=== PATIENT | female | born 1970 | race Caucasian/White ===

== ENCOUNTER 2019-09-10 08:36 | Day surgery (SDC) | payer OTHER ==
[~2019-09-10 08:36] MED LIST: FENTANYL CITR 250 MCG/5 ML ONE; LIDOCAINE 2% MPF 5 ML VIAL ONE; MIDAZOLAM HCL 2 MG/2 ML INJ ONE; ONDANSETRON 4 MG/2 ML VIAL ONE; ROCURONIUM 50 MG/5 ML VIAL IV ONE; dexAMETHasone 10 MG/ML VIAL ONE; propofoL 200 MG/20 ML VIAL IV ONE
[2019-09-10] MEDS ORDERED: Ringers Lactate 1,000 ML IV ONE ×3 (08:59→09:03)
[2019-09-10] MEDS ORDERED: CEFAZOLIN/SWI 1gm 1 GM/10 ML SYR ONE (08:59)
[2019-09-10] MEDS ORDERED: NS 0.9% VIAL 20 ML ONE ×2 (09:01→09:04)
[2019-09-10] MEDS ORDERED: CEFAZOLIN SODIUM 1 GM/VIAL ONE (09:02)
[2019-09-10] MEDS ORDERED: Mastisol Adhesive Liq ONE (09:02)
[2019-09-10] MEDS ORDERED: GENTAMICIN SULF 80 MG/2ML INJ ONE (09:02)
[2019-09-10] MEDS ORDERED: LIDOCAINE 1% W/EPI 1:100,000 MDV 20 ML VIAL ONE (09:03)
[2019-09-10] MEDS ORDERED: BACITRACIN 50000 UNIT VIAL ONE (09:03)
--- NOTE | 2019-09-10 09:10 | RAD REPORT ---
[facility] 8:54 am CLINICAL HISTORY: Preop for breast reduction COMPARISON: none FINDINGS: The lung apices are not included in the field of view and are not evaluated. The patient declined to have a second chest x-ray obtained to evaluate the lung apices Visualized lungs appear clear of acute infiltrate. Heart is normal size IMPRESSION: No acute abnormalities displayed
[2019-09-10] MEDS ORDERED: SCOPOLAMINE HYDROBROMIDE PATCH TD ONE (09:29)
[2019-09-10] MEDS ORDERED: DIPHENHYDRAMINE 50 MG/ML VIAL ONE (09:50)
[2019-09-10] MEDS ORDERED: NS 0.9% VIAL 10 ML ONE (09:50)
[2019-09-10] MEDS ORDERED: GLYCOPYRROLATE 0.2 MG/ML SYR ONE (10:17)
[2019-09-10] MEDS ORDERED: MORPHINE 10 MG/ML VIAL ONE (10:18)
[2019-09-10] MEDS ORDERED: ROCURONIUM 50 MG/5 ML VIAL IV ONE (10:19)
[2019-09-10] MEDS ORDERED: ONDANSETRON 4 MG/2 ML VIAL ONE ×2 (10:20→16:59)
[2019-09-10] MEDS ORDERED: NEOSTIGMINE 1 MG/ML -5 ML ONE (11:13)
[2019-09-10] MEDS ORDERED: EPHEDRINE SULF 50 MG/ML VIAL ONE (11:13)
[2019-09-10] MEDS ORDERED: FENTANYL CITR 100 MCG/2 ML ONE (13:07)
--- NOTE | 2019-09-10 13:44 | EKG ---
Test Date: 2019-09-10 Test Time: 08:07:26 Surveillance Director: ELVIRA MEASUREMENT RESULTS: Intervals: Rate: 62 VT: 154 QRSD: 80 QT: 392 QTc: 397 [place]: P: 83 VT: 154 QRS: 61 T: 48 INTERPRETIVE STATEMENTS: Normal sinus rhythm Normal ECG No previous ECG available for comparison Electronically Signed On 09-10-19 13:43:34 DIETARY SUPERVISOR by Jose Cannon
[2019-09-10] MEDS: MEPERIDINE HCL 25 MG/0.5 ML ONE ×2 (14:15→14:17)
[2019-09-10] MEDS: MEPERIDINE HCL 50 MG/ML ONE ×2 (14:25→14:41)
[2019-09-10] MEDS: HYDROMORPHONE HCL 1 MG/ML INJ ONE ×4 (14:33→14:53)
[2019-09-10] MEDS ORDERED: KETOROLAC 30 MG/ML INJ ONE (14:37)
[2019-09-10] MEDS ORDERED: PROMETHAZINE INJ 25 MG/ML AMP ONE (14:56)
[2019-09-10] MEDS ORDERED: CODEINE 30MG/APAP 300MG TAB ONE (15:56)
[2019-09-10] MEDS ORDERED: NALOXONE 0.4 MG/ML VIAL ONE (16:10)
[2019-09-10 17:45] VITALS: BP 105/52; TEMP 98.2; O2SAT 99
--- NOTE | 2019-09-10 23:57 | OP ---
Surgeon: Alverto Parra MD Purse Maker: Angel. Preoperative Diagnosis: Breast enlargement and descent. Postoperative Diagnosis: Breast enlargement and descent. Procedure Performed: Breast reduction and lift. Anesthesia: General. Procedure In Detail: After satisfactory induction of general anesthesia, the chest was prepped with DuraPrep, dry sterile drapes applied in the usual manner. A 45 mm template was used to outline the right and left areolas. Then , transverse and curvilinear incisions were made with a scalpel. A 45 template was used for the areolas and intervening skin de-epithelialized with EpiCut or dermabrader. Then, transverse and lateral incisions were made with the cautery. Flaps were elevated to 1.5 cm thickness towards the sternum, clavicle , and anterior axillary line. Then, inferior incision was made and the deep tissue forming the cone after lateral excess breast tissue was removed. Conization was performed with 2-0 PDS suture and then straps were elevated at 12 o'clock, 1:30, and 3 o'clock positions on the right breast and mirror image on the left. Straps then woven in and out of the pectoralis major muscle back to the base of the cone, back to pectoralis muscle, back to the base of the cone , tied to itself with 2-0 PDS suture. This was done from 12 o'clock, 1:30 strap. The 3 o'clock strap was sewn over to the sternum and 3 o'clock positions. Mirror image was done on the left side. Wounds were temporarily stapled shut. The patient was checked for symmetry. The dog ears were marked out. Patient was placed supine. Wound was irrigated with antibiotic solution. A 10 DONNELL was brought out the axilla and sewn in place with 2-0 silk. Sub q closure _ consisted of 3-0 Vicryl PDS followed by 3-0 PDS running subcuticular, tied from medial to lateral, lateral to medial, and tied in the vertical meridian of the breast. This was done after the dog ears have marked out before. Patient was sat up. Site for new nipple-areolar complex was marked out. 45 mm templates were used. Tissue was cored out, nipple was delivered, sewn with interrupted 4-0 PDS followed by 4-0 PDS running subcuticular. Dressings of tincture of benzoin, Steri-Strips, 5 x 5's, fluffs, and Jass wrap. Patient tolerated the procedure well. Amount of tissue removed from the right breast was 150, left breast 140 cc. MEIR/KENNETH Voice ID: [id number] Report ID: [id number] MTDD
== END 2019-09-10 17:42 | disposition home or self-care (01) ==
LOC: OR 08:36
PROVIDERS: ATTEND Specialist
PROC: 0H0V0ZZ Alteration of Bilateral Breast, Open Approach (ICD-10-PCS; 2019-09-10)
PROC: 0H0V0ZZ Alteration of Bilateral Breast, Open Approach (ICD-10-PCS; principal; 2019-09-10 09:00)
DX: N62 Hypertrophy of breast (principal); N64.81 Ptosis of breast; E07.9 Disorder of thyroid, unspecified; Z91.040 Latex allergy status
CPT/HCPCS: 19318; 19316; 93005; 81025; 88305; 71045; J2704; J2550; J2310; J1200; J1580; J2250; J3010 ×2; J1100; J2175 ×2; J1170 ×2; J2710; J0690 ×2; J7120 ×3; J2405 ×3